=== PATIENT | male | born 1995 | race Caucasian/White ===

== ENCOUNTER 2022-03-18 18:10 | Emergency (ER) | payer SELFPAY ==
--- NOTE | 2022-03-18 20:02 | ER ---
Nurse's Notes [facility] Name: Raji Chiang Age: 26 yrs Sex: Male : 1995 Arrival Date: 03/18/2022 Time: 18:13 Bed 9 Private MD: Diagnosis: Dysuria Presentation: 03/18 18:25 Chief complaint: Patient states: BURNING WITH URINATION X 2 DAYS. Coronavirus screen: [facility] Vaccine status: Patient reports being unvaccinated. Ebola Screen: Patient negative for fever greater than or equal to 101.5 degrees Fahrenheit, and additional compatible Ebola Virus Disease symptoms Patient denies exposure to infectious person. Patient denies travel to an Ebola-affected area in the 21 days before illness onset. Initial Sepsis Screen: Does the patient meet any 2 criteria? No. Patient's initial sepsis screen is negative. Risk Assessment: Do you want to hurt yourself or someone else? Patient reports no desire to harm self or others. Onset of symptoms was March 16, 2022. 18:25 Method Of Arrival: Ambulatory [facility] 18:25 Acuity: ROBINA 4 [facility] 18:25 Acuity: Unassigned [facility] 19:16 Initial Sepsis Screen: Does the patient have a suspected source of infection? No. as6 Patient's initial sepsis screen is negative. 19:17 Acuity: ROBINA 4 as6 Triage Assessment: 18:27 General: Appears in no apparent distress. Behavior is calm, cooperative. Pain: [facility] Complains of pain in groin Pain currently is 6 out of 10 on a pain scale. Quality of pain is described as burning, Pain began 2-3 days ago. Is intermittent, Aggravated by VOIDING. Historical: - PMHx: 18:27 Seizures; Substance Abuse; [facility] - PSHx: 18:27 None; [facility] - Social history:: Smoking status: Patient reports the use of cigarette tobacco products. Screenin:28 Abuse screen: Denies threats or abuse. Denies injuries from another. Nutritional [facility] screening: No deficits noted. Tuberculosis screening: No symptoms or risk factors identified. Fall Risk None identified. Assessment: 19:00 Reassessment: Patient appears in no apparent distress at this time. Patient and/or jb4 family updated on plan of care and expected duration. Pain level reassessed. Patient is alert, oriented x 3, equal unlabored respirations, skin warm/dry/pink. 20:38 Reassessment: Patient appears in no apparent distress at this time. Patient and/or jb4 family updated on plan of care and expected duration. Pain level reassessed. Patient is alert, oriented x 3, equal unlabored respirations, skin warm/dry/pink. Vital Signs: 18:25 BP 131 / 85; Pulse 76; Resp 16; Temp 97.4(O); Pulse Ox 100% ; Weight 69.85 kg; Height 5 6 ft. 7 in. (170.18 cm); Pain 6/10; 18:25 Body Mass Index 24.12 (69.85 kg, 170.18 cm) [facility] ED Course: 18:13 Patient arrived in ED. as 18:14 [facility] 18:14 Alexey Diamond DO is Attending Physician. [facility] 18:27 Triage completed. [facility] 18:28 Arm band placed on right wrist. [facility] 20:22 Adam Avery, RN is Primary Nurse. jb4 20:38 Patient has correct armband on for positive identification. Bed in low position. Call jb4 light in reach. Side rails up X 1. 20:38 No provider procedures requiring assistance completed. Patient did not have IV access jb4 during this emergency room visit. Administered Medications: 20:22 Drug: cefTRIAXone 1 grams Route: IM; Site: right gluteus; jb4 20:37 Follow up: Response: No adverse reaction jb4 20:22 Drug: AZITHromycin 1 grams Route: PO; jb4 20:37 Follow up: Response: No adverse reaction [facility] Medication: 20:38 VIS not applicable for this client. jb4 Outcome: 20:02 Discharge ordered by . [facility] 20:38 Discharged to home ambulatory. jb4 20:38 Condition: stable 20:38 Discharge instructions given to patient, Instructed on discharge instructions, follow up and referral plans. Demonstrated understanding of instructions, follow-up care. 20:39 Patient left the ED. jb4 Signatures: Gurpreet eLe PA PA jmm Martinez, Amelia as Bryson, James, RN OPAL jb4 Ramsey Colon RN RN as6 Alisa Marx RN RN 6
--- NOTE | 2022-03-18 20:02 | EDPHYS ---
Physician Documentation [facility] Name: Raji Chiang Age: 26 yrs Sex: Male : 1995 Arrival Date: 03/18/2022 Time: 18:13 Bed 9 Private MD: ED Physician Alexey Diamond HPI: 03/18 18:44 This 26 yrs old Male presents to ER via Ambulatory with complaints of Pain With jmm Urination. 18:44 Onset: The symptoms/episode began/occurred gradually. Associated signs and symptoms: jmm Pertinent negatives: fever. This is a 26 year old male with a history of epilepsy that presents to the ED with complaints of dysuria. Patient states his partner was recently diagnosed with chlamydia. Denies vomiting or fever. Historical: - PMHx: 18:27 Seizures; Substance Abuse; jh6 - PSHx: 18:27 None; [facility] - Social history:: Smoking status: Patient reports the use of cigarette tobacco products. ROS: 18:44 Constitutional: Negative for fever, chills, and weight loss, Cardiovascular: Negative jmm for chest pain, palpitations, and edema, Respiratory: Negative for shortness of breath, cough, wheezing, and pleuritic chest pain. 18:44 : Positive for urinary symptoms. 18:44 All other systems are negative. Exam: 18:44 Constitutional: This is a well developed, well nourished patient who is awake, alert, jmm and in no acute distress. Head/Face: atraumatic. Eyes: EOMI, no conjunctival erythema appreciated ENT: Moist Mucus Membranes Neck: Trachea midline, Supple Chest/axilla: Normal chest wall appearance and motion. Cardiovascular: Regular rate and rhythm. No edema appreciated Respiratory: Normal respirations, no respiratory distress appreciated Abdomen/GI: Non distended Back: Normal ROM Skin: General appearance color normal MS/ Extremity: Moves all extremities, no obvious deformities appreciated, no edema noted to the lower extremities Neuro: Awake and alert Psych: Behavior is normal, Mood is normal, Patient is cooperative and pleasant Vital Signs: 18:25 BP 131 / 85; Pulse 76; Resp 16; Temp 97.4(O); Pulse Ox 100% ; Weight 69.85 kg; Height 5 jh6 ft. 7 in. (170.18 cm); Pain 6/10; 18:25 Body Mass Index 24.12 (69.85 kg, 170.18 cm) jh6 MDM: 18:44 Patient medically screened. [facility] 20:01 Data reviewed: vital signs, nurses notes. Counseling: I had a detailed discussion with pat the patient and/or guardian regarding: the historical points, exam findings, and any diagnostic results supporting the discharge/admit diagnosis, the need for outpatient follow up, to return to the emergency department if symptoms worsen or persist or if there are any questions or concerns that arise at home. Administered Medications: 20: Drug: cefTRIAXone 1 grams Route: IM; Site: right gluteus; jb4 20:37 Follow up: Response: No adverse reaction jb4 20:22 Drug: AZITHromycin 1 grams Route: PO; jb4 20:37 Follow up: Response: No adverse reaction jb4 Disposition: 03/19 09:45 Co-signature as Attending Physician, Alexey Diamond DO I was immediately available on-site ms3 in the Emergency Department for consultation in the care of the patient.. Disposition Summary: 03/18/22 20:02 Discharge Ordered Location: Home [facility] Condition: Stable [facility] Diagnosis - Dysuria [facility] Followup: [facility] - With: Private Physician - When: As needed - Reason: Recheck today's complaints, Continuance of care, Re-evaluation by your physician Discharge Instructions: - Discharge Summary Sheet [facility] - Dysuria [facility] - Preventing Sexually Transmitted Infections, Adult [facility] Forms: - Medication Reconciliation Form [facility] - Thank You Letter jm - Antibiotic Education jmm - Prescription Opioid Use [facility] Signatures: Gurpreet Lee PA PA jmm Bryson, James, RN RN jb4 Alexey Diamond DO DO ms3 Alisa Marx RN RN jh6
[2022-03-18] MEDS ORDERED: WATER FOR INJ,STERILE 10 ML ONE (20:18)
[2022-03-18] MEDS ORDERED: CEFTRIAXONE 1000 MG/VIAL ONE (20:18)
[2022-03-18] MEDS ORDERED: AZITHROMYCIN 250 MG TAB ONE (20:18)
[2022-03-18 21:18] VITALS: BP 131/85; TEMP 97.4; O2SAT 100
[2022-03-18] MEDS ORDERED: NITROFURAN MACRO 100 MG CAP PO ONE (21:53)
--- OUTSIDE RECORDS SUMMARY | 2022-03-19 15:46 | XMS REPORT | Continuity of Care Document ---
:1995 Author Organization [facility] t Address [address] [place] [address] Dr. Jewell [address] [place] [id number] Care Team Providers Name Role Phone PAULETTE NOLASCO Attending Clinician Unavailable Payers Payer Name Policy Type Policy Number Effective Date Expiration Date [place] [id number] 2018 00:00:00 Problems This patient has no known problems. Allergies, Adverse Reactions, Alerts Allergy Allergy Status Severity Reaction(s) Onset Inactive Treating Comm ents Source Name Type Date Date Clinician NO KNOWN Drug Active [facility] ALLERGIE Class [facility] Medications This patient has no known medications. Procedures This patient has no known procedures. Encounters Start End Encounter Admission Attending Care Care Encounter Source Date/Time Date/Time Type Type Clinicians Facility Department ID 2019-07-31 2019-07-31 Emergency X Roderick NOLASCO [facility] ERT [id number] 13:29:03 17:20:00 [facility] Results This patient has no known results.
== END 2022-03-18 20:39 | disposition home or self-care (01) ==
LOC: ER 18:10
DX: R30.0 Dysuria (principal); Z72.0 Tobacco use

== ENCOUNTER 2023-07-23 17:06 | Emergency (ER) | payer SELFPAY ==
[2023-07-23 18:15] LABS: SARS-CoV-2 Antigen Rapid Res Negative (Negative)
--- NOTE | 2023-07-23 18:48 | ER ---
Nurse's Notes [facility] Name: Raji Chiang Age: 27 yrs Sex: Male : 1995 Arrival Date: 07/23/2023 Time: 17:06 Bed 10 Private MD: Diagnosis: Influenza due to identified novel influenza A virus Presentation: 07/23 17:25 Chief complaint: Patient states: flu like symptoms onset this morning. pt states that cm10 he was around someone that has the flu. Coronavirus screen: Vaccine status: Patient reports being unvaccinated. Client denies travel out of the [place] in the last 14 days. Ebola Screen: Patient denies travel to an Ebola-affected area in the 21 days before illness onset. No symptoms or risks identified at this time. Initial Sepsis Screen: Does the patient meet any 2 criteria? No. Patient's initial sepsis screen is negative. Does the patient have a suspected source of infection? No. Patient's initial sepsis screen is negative. Risk Assessment: Do you want to hurt yourself or someone else? Patient reports no desire to harm self or others. Onset of symptoms was July 23, 2023. 17:25 Method Of Arrival: Ambulatory cm10 17:25 Acuity: ROBINA 4 cm10 Historical: - Allergies: 17:32 No Known Allergies; cm10 - PMHx: 17:32 Seizures; Substance Abuse; cm10 - Immunization history:: Adult Immunizations unknown. - Social history:: Smoking status: Patient reports the use of cigarette tobacco products, smokes one pack cigarettes per day. Reported history of juuling and/or vaping. Screenin:00 [facility] ED Fall Risk Assessment (Adult) History of falling in the last 3 months, kb3 including since admission No falls in past 3 months (0 pts) Confusion or Disorientation No (0 pts) Intoxicated or Sedated No (0 pts) Impaired Gait No (0 pts) Mobility Assist Device Used No (0 pt) Altered Elimination No (0 pt) Score/Fall Risk Level 0 - 2 = Low Risk Oriented to surroundings. Abuse screen: Denies threats or abuse. Denies injuries from another. Nutritional screening: No deficits noted. Tuberculosis screening: No symptoms or risk factors identified. Assessment: 18:00 General: Appears in no apparent distress. Behavior is calm, cooperative. kb3 18:00 Pain: Complains of pain in head, chest, right arm, left arm, right leg and left leg kb3 Pain does not radiate. Pain currently is 8 out of 10 on a pain scale. Quality of pain is described as aching, Pain began 1 day ago. Vital Signs: 17:25 BP 141 / 90; Pulse 99; Resp 18; Temp 98.2; Pulse Ox 97% ; Weight 72.57 kg; Height 5 ft. cm10 7 in. ; 17:25 Body Mass Index 25.06 (72.57 kg, 170.18 cm) cm10 ED Course: 17:14 Patient arrived in ED. as 17:17 Alexey Diamond DO is Attending Physician. ms3 17:18 Alina Tyler FNP-C [facility] kb 17:32 Triage completed. cm10 17:32 Arm band placed on Patient placed in waiting room. cm10 18:00 Patient has correct armband on for positive identification. Call light in reach. kb3 Provided Education on: plan of care. 18:00 No provider procedures requiring assistance completed. Patient did not have IV access kb3 during this emergency room visit. Administered Medications: No medications were administered Medication: 18:00 VIS not applicable for this client. kb3 Outcome: 18:47 Discharge ordered by MD. kb 19:00 Discharged to home ambulatory, kb3 19:00 Condition: good kb3 19:00 Discharge instructions given to patient, Instructed on discharge instructions, follow up and referral plans. medication usage, Demonstrated understanding of instructions, follow-up care, medications, 19:19 Patient left the ED. kb3 Signatures: Alina Tyler FNP-C FNP-Lauren Mills as Alexey Diamond DO DO ms3 Angelita Martinez, RN RN kb3 Nita Chicas, RN RN cm10
--- NOTE | 2023-07-23 18:48 | EDPHYS ---
Physician Documentation [facility] Name: Raji Chiang Age: 27 yrs Sex: Male : 1995 Arrival Date: 07/23/2023 Time: 17:06 Bed 10 Private MD: ED Physician Alexey Diamond HPI: 07/23 19:08 This 27 yrs old Male presents to ER via Ambulatory with complaints of Flu Symptoms. kb 19:08 Patient is a 27-year-old male who presents for fever, malaise, cough and congestion kb that started today. Reports has been exposed to the flu. Historical: - Allergies: 17:32 No Known Allergies; cm10 - PMHx: 17:32 Seizures; Substance Abuse; cm10 - Immunization history:: Adult Immunizations unknown. - Social history:: Smoking status: Patient reports the use of cigarette tobacco products, smokes one pack cigarettes per day. Reported history of juuling and/or vaping. ROS: 19:08 Abdomen/GI: Negative for abdominal pain, nausea, vomiting, diarrhea, and constipation, kb 19:08 Constitutional: Positive for fever, malaise, 19:08 ENT: Positive for rhinorrhea, sinus congestion, 19:08 Respiratory: Positive for cough, 19:08 All other systems are negative, Exam: 19:08 Constitutional: This is a well developed, well nourished patient who is awake, alert, kb and in no acute distress. Head/Face: Normocephalic, atraumatic. ENT: Moist Mucous membranes Cardiovascular: Regular rate Respiratory: Respirations even and unlabored. No increased work of breathing. Talking in full sentences Skin: Warm, dry with normal turgor. Normal color. MS/ Extremity: Pulses equal, no cyanosis. Neurovascular intact. Full, normal range of motion. Neuro: Awake and alert, GCS 15, oriented to person, place, time, and situation. Moves all extremities. Normal gait. Vital Signs: 17:25 BP 141 / 90; Pulse 99; Resp 18; Temp 98.2; Pulse Ox 97% ; Weight 72.57 kg; Height 5 ft. cm10 7 in. ; 17:25 Body Mass Index 25.06 (72.57 kg, 170.18 cm) cm10 MDM: 17:18 Patient medically screened. kb 19:09 Differential diagnosis: Flu, COVID, URI. Data reviewed: vital signs, nurses notes. kb Counseling: I had a detailed discussion with the patient and/or guardian regarding the historical points, exam findings, and any diagnostic results supporting the discharge/admit diagnosis, lab results, the need for outpatient follow up, a family practitioner, to return to the emergency department if symptoms worsen or persist or if there are any questions or concerns that arise at home. 19:09 ED course: Son is here for similar symptoms and tested positive for flu B. kb 07/23 17:24 Order name: Flu; Complete Time: 18:25 cm10 07/23 18:01 Order name: SARS-COV-2 Antigen Rapid; Complete Time: 18:25 EDMS Administered Medications: No medications were administered Disposition: 20:52 I was immediately available on-site in the Emergency Department for consultation in the ms3 care of the patient. Disposition Summary: 07/23/23 18:47 Discharge Ordered Notes: Location: Home kb Condition: Stable kb Diagnosis - Influenza due to identified novel influenza A virus kb Followup: kb - With: Emergency Department - When: As needed - Reason: Worsening of condition Followup: kb - With: Private Physician - When: 2 - 3 days - Reason: Recheck today's complaints, Continuance of care, Re-evaluation by your physician Discharge Instructions: - Discharge Summary Sheet kb - Influenza, Adult, [id number] kb Forms: - Medication Reconciliation Form kb - Thank You Letter kb - Antibiotic Education kb - Prescription Opioid Use kb - Patient Portal Instructions kb - Leadership Thank You Letter kb - Work release form kb3 Signatures: Dispatcher [employer] EDAlina Ya, ORAL AND MAXILLOFACIAL PATHOLOGIST-C GUIDO-Alexey Baca DO DO ms3 Nita Chicas, RN RN cm10 Corrections: (The following items were deleted from the chart) 18: 17:25 SARS-COV-2 RT PCR+[id number] ordered. EDMO EDMS
[2023-07-23 21:04] VITALS: BP 141/90; TEMP 98.2; O2SAT 97
== END 2023-07-23 19:19 | disposition home or self-care (01) ==
LOC: ER 17:06
DX: J10.1 Influenza due to other identified influenza virus with other respiratory manifestations (principal); Z11.52 Encounter for screening for COVID-19
CPT/HCPCS: 36415; 87804; 87811; 99282

== ENCOUNTER 2024-02-24 09:45 | Emergency (ER) | payer SELFPAY ==
[2024-02-24] MEDS ORDERED: KETOROLAC 30 MG/ML INJ ONE (13:34)
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
--- NOTE | 2024-02-24 14:05 | EDPHYS ---
Physician Documentation [facility] Name: Raji Chiang Age: 28 yrs Sex: Male : 1995 Arrival Date: 02/24/2024 Time: 09:45 Bed 12 Private MD: ED Physician Kailey Wilkinson HPI: 02/23 14:23 This 28 yrs old Male presents to ER via Ambulatory with complaints of Back gb1 Pain, Facial Injury. Historical: - Allergies: 10:04 No Known Allergies; aa5 - PMHx: 10:04 Seizures; Substance Abuse; aa5 - PSHx: 10:04 None; aa5 - Immunization history:: Adult Immunizations unknown. - Infectious Disease History:: Denies. - Social history:: Smoking status: Patient reports the use of cigarette tobacco products. Exam: 14:23 Constitutional: This is a well developed, well nourished patient who is awake, alert, gb1 and in no acute distress. Head/Face: Normocephalic, atraumatic. Eyes: Pupils equal round and reactive to light, extra-ocular motions intact. Lids and lashes normal. Conjunctiva and sclera are non-icteric and not injected. Cornea within normal limits. Periorbital areas with no swelling, redness, or edema. ENT: Nares patent. No nasal discharge, no septal abnormalities noted. Tympanic membranes are normal and external auditory canals are clear. Oropharynx with no redness, swelling, or masses, exudates, or evidence of obstruction, uvula midline. Mucous membranes moist. Neck: Trachea midline, no thyromegaly or masses palpated, and no cervical lymphadenopathy. Supple, full range of motion without nuchal rigidity, or vertebral point tenderness. No Meningismus. Chest/axilla: Normal chest wall appearance and motion. Nontender with no deformity. No lesions are appreciated. Cardiovascular: Regular rate and rhythm with a normal S1 and S2. No gallops, murmurs, or rubs. Normal PMI, no JVD. No pulse deficits. Respiratory: Lungs have equal breath sounds bilaterally, clear to auscultation and percussion. No rales, rhonchi or wheezes noted. No increased work of breathing, no retractions or nasal flaring. Abdomen/GI: Soft, non-tender, with normal bowel sounds. No distension or tympany. No guarding or rebound. No evidence of tenderness throughout. Back: Patient has lateral right lower lumbar spinal tenderness that is just paraspinal. No costovertebral tenderness. Patient is unable to flex at the hips and touch his toes without pain. He denies any radiculopathy. Skin: Warm, dry with normal turgor. Normal color with no rashes, no lesions, and no evidence of cellulitis. MS/ Extremity: Pulses equal, no cyanosis. Neurovascular intact. Full, normal range of motion. Vital Signs: 10:05 BP 145 / 74; Pulse 90; Resp 16 S; Temp 98.9(O); Pulse Ox 98% on R/A; Weight 72.57 kg aa5 (R); Height 5 ft. 7 in. (R); 12:30 BP 141 / 85; Pulse 86; Resp 18; Pulse Ox 99% on R/A; Pain 8/10; tl4 14:34 BP 132 / 86; Pulse 80; Resp 16; Temp 98.3(O); Pulse Ox 99% on R/A; Pain 5/10; tl4 10:05 Body Mass Index 25.06 (72.57 kg, 170.18 cm) aa5 12:30 Pain Scale: Adult tl4 14:34 Pain Scale: Adult tl4 MDM: 10:03 Patient medically screened. gb1 14:23 Data reviewed: nurses notes, lab test result(s), radiologic studies, CT scan. gb1 02/23 13:16 Order name: CT Lumbar Spine Wo Con; Complete Time: 13:54 gb1 Administered Medications: 13:43 Drug: Ketorolac IM 60 mg IM once Route: IM; Site: right ventrogluteal; tl4 14:35 Follow up: Response: No adverse reaction; Pain is decreased tl4 Disposition Summary: 02/24/24 14:04 Discharge Ordered Notes: Location: Home gb1 Problem: new gb1 Symptoms: are unchanged gb1 Condition: Fair gb1 Diagnosis - Fracture of fourth lumbar vertebra gb1 - Contusion of eyeball and orbital tissues, left eye gb1 Followup: gb1 - With: Private Physician - When: - Reason: Re-evaluation by your physician Discharge Instructions: - Discharge Summary Sheet gb1 - Transverse Process Fracture gb1 Forms: - Work release form gb1 - Medication Reconciliation Form gb1 - Antibiotic Education gb1 - Prescription Opioid Use gb1 - Patient Portal Instructions gb1 - Leadership Thank You Letter gb1 Prescriptions: - Ibuprofen 800 mg Oral Tablet - take 1 tablet ORAL route every 12 hours As needed take with food; 20 tablet; gb1 Refills: 0, Product Selection Permitted Signatures: Dispatcher [employer] Pauline Schroeder RN RN aa5 Kailey Wilkinson MD MD gb1 Edu Dickerson RN RN tl4
[2024-02-24 14:33] VITALS: TEMP 98.9
[2024-02-24 14:54] VITALS: BP 145/74; O2SAT 98
== END 2024-02-24 14:33 | disposition home or self-care (01) ==
LOC: ER 09:45
DX: S32.049A Unspecified fracture of fourth lumbar vertebra, initial encounter for closed fracture (principal); S05.12XA Contusion of eyeball and orbital tissues, left eye, initial encounter; Y04.0XXA Assault by unarmed brawl or fight, initial encounter; F17.210 Nicotine dependence, cigarettes, uncomplicated
CPT/HCPCS: 72131; 96372; 99284

== ENCOUNTER 2024-07-12 19:05 | Emergency (ER) | payer SELFPAY ==
--- NOTE | 2024-07-12 20:13 | EDPHYS ---
Physician Documentation [facility] Name: Raji Chiang Age: 28 yrs Sex: Male : 1995 Arrival Date: 07/12/2024 Time: 19:05 Bed [id number] Private MD: ED Physician Reuben Collins HPI: 07/12 19:58 This 28 yrs old Male presents to ER via Ambulatory with complaints of Bump on sp4 face. 07/13 20:04 This is a 28-year-old male who complains of left cheek nodule that has been present for sp4 a year. Historical: - Allergies: 07/12 19:53 No Known Allergies; ko1 - PMHx: 19:53 Seizures; Substance Abuse; ko1 - PSHx: 19:53 None; ko1 - Immunization history:: Client reports having NOT received the Covid vaccine. - Infectious Disease History:: Denies. - Social history:: Smoking status: Patient reports the use of cigarette tobacco products, smokes one-half pack cigarettes per day, Patient uses alcohol, on a daily basis. - Family history:: not pertinent. ROS: 07/13 20:09 Constitutional: Negative for fever, chills, and weight loss, positive for left cheek sp4 left facial lesion All other systems are negative, Exam: 20:09 Constitutional: This is a well developed, well nourished patient who is awake, alert, sp4 and in no acute distress. Head/Face: Normocephalic, atraumatic. There is soft freely movable left upper cheek lesion consistent with moderate size lipoma . No sign of sebaceous cyst no sign of infected sebaceous cyst , no sign of abscess and no sign of mass suspicious for cancer. Eyes: Pupils equal round and reactive to light, extra-ocular motions intact. Lids and lashes normal. Conjunctiva and sclera are not injected. Cornea within normal limits. Periorbital areas with no swelling, redness, or edema. ENT: Nares patent. No nasal discharge, no septal abnormalities noted. Tympanic membranes are normal and external auditory canals are clear. Oropharynx with no redness, swelling, or masses, exudates, or evidence of obstruction, uvula midline. Mucous membranes moist. Neck: Trachea midline, no thyromegaly or masses palpated, and no cervical lymphadenopathy. Supple, full range of motion without nuchal rigidity, or vertebral point tenderness. Chest/axilla: Normal chest wall appearance and motion. Nontender with no deformity. No lesions are appreciated. Cardiovascular: Regular rate and rhythm with a normal S1 and S2. No gallops, murmurs, or rubs. Normal PMI, no JVD. No pulse deficits. Respiratory: Lungs have equal breath sounds bilaterally, clear to auscultation and percussion. No rales, rhonchi or wheezes noted. No increased work of breathing, no retractions or nasal flaring. Abdomen/GI: Soft, with normal bowel sounds. No distension or tympany. No guarding or rebound. No evidence of tenderness throughout. Back: No spinal tenderness. No costovertebral tenderness. Skin: Warm, dry with normal turgor. Normal color with no rashes, no lesions, and no evidence of cellulitis. MS/ Extremity: Pulses equal, no cyanosis. Neurovascular intact. Full, normal range of motion. Neuro: Awake and alert, GCS 15, oriented to person, place, time, and situation. Cranial nerves II-XII grossly intact. Motor strength 5/5 in all extremities. Sensory grossly intact. Psych: Awake, alert, with orientation to person, place and time. Behavior, mood, and affect are within normal limits Vital Signs: 07/12 19:52 BP 115 / 84; Pulse 71; Resp 16; Temp 98.4(O); Pulse Ox 100% on R/A; MAP 90 mmHg; Weight ko1 70.31 kg; Height 5 ft. 7 in. ; Pain 4/10; 19:52 Body Mass Index 24.28 (70.31 kg, 170.18 cm) ko1 19:52 Pain Scale: Adult ko1 Jose Coma Score: 07/13 20:09 Eye Response: spontaneous(4). Motor Response: obeys commands(6). Verbal Response: sp4 oriented(5). Total: 15. 20:09 Eye Response: spontaneous(4). Motor Response: obeys commands(6). Verbal Response: sp4 oriented(5). Total: 15. MDM: 07/12 20:13 Medical Screening Exam initiated sp4 07/13 20:09 Differential diagnosis: Contusion of Hematoma on Laceration of. Data reviewed: vital sp4 signs, nurses notes, old medical records. ED course: Positive for lipoma of the left upper cheek. Patient was advised that we cannot resected his lipoma here in the emergency room but we can refer patient to Dr. Alfaro with ENT or local plastic surgeon for resection of lipoma in the office.. Administered Medications: No medications were administered Disposition Summary: 07/12/24 20:13 Discharge Ordered Problem: new sp4 Symptoms: have improved sp4 Condition: Stable sp4 Diagnosis - Left Facial lipoma sp4 Followup: sp4 - With: Urvashi Ponce MD - When: 7 - 10 days - Reason: Recheck today's complaints Followup: sp4 - With: Sandor De La Cruz MD - When: 7 - 10 days - Reason: Recheck today's complaints Followup: sp4 - With: Shelli Alfaro MD - When: 7 - 10 days - Reason: Recheck today's complaints Discharge Instructions: - Discharge Summary Sheet sp4 - Lipoma sp4 Forms: - Work release form sp4 - Patient Portal Instructions sp4 Signatures: Radha Romero RN RN ko1 Reuben Collins MD MD sp4
--- NOTE | 2024-07-12 20:13 | ER ---
Nurse's Notes [facility] Name: Raji Chiang Age: 28 yrs Sex: Male : 1995 Arrival Date: 07/12/2024 Time: 19:05 Bed IW10 Private MD: Diagnosis: Left Facial lipoma Presentation: 07/12 19:52 Chief complaint: Patient states: bump on left side of face, on cheek, been there for ko1 about a year, but has gotten bigger and bigger over the last few months. It irritates my left eye and gives me a headache. Coronavirus screen: Client denies travel out of the [place] in the last 14 days. Ebola Screen: Patient negative for fever greater than or equal to 101.5 degrees Fahrenheit, and additional compatible Ebola Virus Disease symptoms Patient denies exposure to infectious person. Patient denies travel to an Ebola-affected area in the 21 days before illness onset. No symptoms or risks identified at this time. Initial Sepsis Screen: Does the patient meet any 2 criteria? No. Patient's initial sepsis screen is negative. Does the patient have a suspected source of infection? No. Patient's initial sepsis screen is negative. Risk Assessment: Do you want to hurt yourself or someone else? Patient reports no desire to harm self or others. Onset of symptoms is unknown. 19:52 Method Of Arrival: Ambulatory ko1 19:52 Acuity: ROBINA 4 ko1 Triage Assessment: 19:53 General: Appears in no apparent distress. Behavior is calm, cooperative. Pain: ko1 Complains of pain in left cheek Pain currently is 3 out of 10 on a pain scale. Pain began about a year. EENT: No signs and/or symptoms were reported regarding the EENT system. Neuro: Level of Consciousness is awake, alert, obeys commands, Oriented to person, place, time, situation. Cardiovascular: Patient's skin is warm and dry. Respiratory: Airway is patent Respiratory effort is even, unlabored, Respiratory pattern is regular, symmetrical. GI: No signs and/or symptoms were reported involving the gastrointestinal system. Abdomen is flat, non-distended. : No signs and/or symptoms were reported regarding the genitourinary system. Derm: bump on left cheek. Musculoskeletal: No signs and/or symptoms reported regarding the musculoskeletal system. Historical: - Allergies: 19:53 No Known Allergies; ko1 - PMHx: 19:53 Seizures; Substance Abuse; ko1 - PSHx: 19:53 None; ko1 - Immunization history:: Client reports having NOT received the Covid vaccine. - Infectious Disease History:: Denies. - Social history:: Smoking status: Patient reports the use of cigarette tobacco products, smokes one-half pack cigarettes per day, Patient uses alcohol, on a daily basis. - Family history:: not pertinent. Screenin:30 [facility] ED Fall Risk Assessment (Adult) History of falling in the last 3 months, tm6 including since admission No falls in past 3 months (0 pts) Confusion or Disorientation No (0 pts) Intoxicated or Sedated No (0 pts) Impaired Gait No (0 pts) Mobility Assist Device Used No (0 pt) Altered Elimination No (0 pt) Score/Fall Risk Level 0 - 2 = Low Risk Oriented to surroundings, Maintained a safe environment, Educated pt \T\ family on fall prevention, incl call for assistance when getting out of bed. Abuse screen: Denies threats or abuse. Denies injuries from another. Nutritional screening: No deficits noted. Tuberculosis screening: No symptoms or risk factors identified. Assessment: 20:30 Reassessment: see triage assessment. tm6 Vital Signs: 19:52 BP 115 / 84; Pulse 71; Resp 16; Temp 98.4(O); Pulse Ox 100% on R/A; MAP 90 mmHg; Weight ko1 70.31 kg; Height 5 ft. 7 in. ; Pain 4/10; 19:52 Body Mass Index 24.28 (70.31 kg, 170.18 cm) ko1 19:52 Pain Scale: Adult ko1 Jose Coma Score: 07/13 20:09 Eye Response: spontaneous(4). Motor Response: obeys commands(6). Verbal Response: sp4 oriented(5). Total: 15. 20:09 Eye Response: spontaneous(4). Motor Response: obeys commands(6). Verbal Response: sp4 oriented(5). Total: 15. ED Course: 07/12 19:09 Patient arrived in ED. mr 19:53 Triage completed. ko1 19:53 Arm band placed on left wrist. ko1 19:57 Reuben Collins MD is Attending Physician. sp4 20:10 Urvashi Ponce MD is Referral Physician. sp4 20:11 Sandor De La Cruz MD is Referral Physician. sp4 20:12 Shelli Alfaro MD is Referral Physician. sp4 20:30 Allergy band placed. Provided Education on: follow up with MDs listed on discharge tm6 paperwork. 20:30 No provider procedures requiring assistance completed. Patient did not have IV access tm6 during this emergency room visit. Administered Medications: No medications were administered Medication: 20:30 VIS not applicable for this client. tm6 Outcome: 20:13 Discharge ordered by MD. sp4 20:30 Discharged to home ambulatory, tm6 20:30 Condition: stable 20:30 Discharge instructions given to patient, Instructed on discharge instructions, follow up and referral plans. Demonstrated understanding of instructions, follow-up care, 20:31 Patient left the ED. tm6 Signatures: Juana Almanzar, Reg Reg mr Radha Romero, RN RN ko1 Reuben Collins MD MD sp4 Bo Reed RN RN tm6
[2024-07-12 20:36] VITALS: BP 115/84; TEMP 98.4; O2SAT 100
== END 2024-07-12 20:31 | disposition home or self-care (01) ==
LOC: ER 19:05
DX: D17.0 Benign lipomatous neoplasm of skin and subcutaneous tissue of head, face and neck (principal); F17.210 Nicotine dependence, cigarettes, uncomplicated

== ENCOUNTER 2025-04-07 09:44 | Emergency (ER) | payer SELFPAY ==
[2025-04-07] MEDS ORDERED: LIDOCAINE 2% W/EPI 1:200,000 MPF 20 ML VIAL IM ONE (10:11)
[2025-04-07] MEDS ORDERED: TDAP (DIPHTH,PERTUSS(ACELL),TET VAC) 0.5 ML VIAL IMVAC ONE (10:11)
[2025-04-07] MEDS ORDERED: NA CHLORIDE 0.9% 2,000 ML ONE (10:11)
[2025-04-07] MEDS ORDERED: ONDANSETRON 4 MG/2 ML VIAL ONE (10:32)
[2025-04-07] MEDS ORDERED: MORPHINE 4 MG/ML SYR ONE (10:33)
--- NOTE | 2025-04-07 10:46 | RAD REPORT ---
EXAM: CT Head Brain Wo Cont HISTORY: TRAUMA COMPARISON: 01/05/[address] TECHNIQUE: Multiple contiguous axial images were obtained for a CT of the brain without contrast. Sag ittal and coronal reformats were performed. One or more of the following dose reduction techniques were used: Automated exposure control, adjus tment of the mA and kV according to patient size, and iterative reconstruction. Unless otherwise specified, incidental findings do not require dedicated imaging follow-up. FINDINGS: No evidence of hydrocephalus, intracranial hemorrhage, or extra-axial fluid collection. The brain is normal in morphology. The calvarium is intact. Facial bony structures are evaluated separately The visualized paranasal sin uses and mastoid air cells are essentially clear. IMPRESSION: No evidence of acute intracranial abnormality. Facial bony structures are evaluated separately.
--- NOTE | 2025-04-07 10:52 | RAD REPORT ---
EXAMINATION: CT MAXILLOFACIAL WITHOUT CONTRAST CLINICAL INDICATION: [facility] MAIN TRAUMA Bed Name: 16 TECHNIQUE: Axial images were obtained through the facial bones and orbits without intravenous contras t. Sagittal and coronal reconstructions were created from the data. One or more of the following dose reduction techniques were used: Automated exposure control, adjustment of the mA and/or kV accor ding to patient size, and/or iterative reconstruction. Unless otherwise specified, incidental findings do not require dedicated imaging follow-up. COMPARISON: No prior exam. FINDINGS: SOFT TISSUE: Right premalar soft tissue swelling and laceration with small locules of gas extending i nto the temporalis fossa. BONES: Comminuted fracture of the zygoma, at the junction with the right lateral orbital margin, inta ct most inferior aspect of the zygoma at the junction with the lateral maxillary sinus wall. Surrounding soft tissue swelling and locules of gas within the temporalis fossa. Nasal bones, orbital and paranasal sinus margins, pterygoid plates, and mandible appear intact. No aggressive osseous lesions. No lesion of the visualized skull base or calvarium. ORBITS: The globes are intact. No intraorbital hemorrhage or mass. SINUSES: The paranasal sinuses and tympanomastoid cavities are predominantly clear. IMPRESSION: Comminuted but incomplete right zygomatic arch fracture, with comminuted components along the junctio n with the right orbital margin. Overlying laceration with locules of gas extending into the temporalis fossa. THIS REPORT CONTAINS FINDINGS THAT MAY BE CRITICAL TO PATIENT CARE. The findings were verbally commun icated via telephone to Doug Johnston NP on 04/07/2025 10:49 AM.
[2025-04-07 11:05] LABS: ALT/SGPT 32 U/L (16-61); AST/SGOT 19 U/L (15-37); Albumin 4.3 g/dL (3.4-5.0); Albumin/Globulin Ratio 1.4 (1.1-1.8); Alkaline Phosphatase 61 U/L (45-117); Anion Gap 10.2 mEq/L (5.0-15.0); BUN Blood Urea Nitrogen 15 mg/dL (7-18); Globulin 3.1 g/dL (2.3-3.5); Glucose Level 113 mg/dL (74-106); Potassium 4.2 mEq/L (3.5-5.1)
[2025-04-07 11:07] LABS: Troponin High Sensitivity < 3.0 pg/mL (<58.9)
[2025-04-07 11:15] LABS: Absolute Lymphocytes (CBC) 1.1 K/uL (0.7-4.9); Hematocrit 44.0 % (39.6-49.0); Hemoglobin 15.1 g/dL (13.6-17.9); MCH 33.1 pg (27.0-35.0); MCHC 34.3 g/dL (32.0-36.0); MCV 96.5 fL (80-100); MPV 9.0 fL (7.6-11.3); Nucleated RBC Absolute Count 0.0 (0-0); Nucleated Red Blood Cells % 0.1 % (0-0); RBC Red Blood Cell Count 4.56 M/uL (4.33-5.43); White Blood Count 8.40 thou/uL (4.3-10.9)
--- NOTE | 2025-04-07 11:55 | EDPHYS ---
Physician Documentation [facility] Name: Raji Chiang Age: 29 yrs Sex: Male : 1995 Arrival Date: 04/07/2025 Time: 09:44 Bed 16 Private MD: ED Physician Monet Vázquez HPI: 04/07 10:07 This 29 yrs old Male presents to ER via Ambulatory with complaints of Passed dr5 Out Prior To Arrival, Dizziness, Weakness, Laceration To Scalp/Face - CHEEK. 10:07 The patient has experienced syncope. Onset: The symptoms/episode began/occurred dr5 acutely. Patient is a 29-year-old male with history of seizure and substance abuse coming in with syncope that occurred last night. Patient reports he had alcohol and fell. Patient does not remember what time he fell. Patient states that he woke up this morning at a pool of blood. Patient has laceration to right baptist. Patient does not know last tetanus immunization. Patient reports mild headache. Patient is grossly neurologically intact.. Historical: - Allergies: 09:58 No Known Drug Allergies; ll1 - PMHx: 09:58 Seizures; Substance Abuse; ll1 - PSHx: 09:58 None; ll1 - Immunization history:: Adult Immunizations up to date, Last tetanus immunization: up to date. - Infectious Disease History:: Denies. - Social history:: Smoking status: Patient reports the use of cigarette tobacco products, smokes one-half pack cigarettes per day, Reported history of juuling and/or vaping. ROS: 10:07 Constitutional: as per hpi dr5 Exam: 10:07 Abdomen/GI: Inspection: abdomen appears normal, dr5 10:07 Constitutional: This is a well developed, well nourished patient who is awake, alert, and in no acute distress. Head/Face: Normocephalic, traumatic laceration noted to right baptist Eyes: Pupils equal round and reactive to light, extra-ocular motions intact. Lids and lashes normal. Conjunctiva and sclera are non-icteric and not injected. Cornea within normal limits. Periorbital areas with no swelling, redness, or edema. Neck: Trachea midline, no thyromegaly or masses palpated, and no cervical lymphadenopathy. Supple, full range of motion without nuchal rigidity, or vertebral point tenderness. No Meningismus. Chest/axilla: Normal chest wall appearance and motion. Nontender with no deformity. No lesions are appreciated. Cardiovascular: Regular rate and rhythm with a normal S1 and S2. Normal PMI, no JVD. No pulse deficits. Respiratory: Lungs have equal breath sounds bilaterally, clear to auscultation. No rales, rhonchi or wheezes noted. No increased work of breathing, no retractions or nasal flaring. Back: No spinal tenderness. No costovertebral tenderness. Full range of motion. Skin: Warm, dry with normal turgor. Normal color with no rashes, no lesions, and no evidence of cellulitis. Laceration noted lateral to right eye. MS/ Extremity: Pulses equal, no cyanosis. Neurovascular intact. Full, normal range of motion. Neuro: Awake and alert, GCS 15, oriented to person, place, time, and situation. Cranial nerves II-XII grossly intact. Motor strength 5/5 in all extremities. Sensory grossly intact. Cerebellar exam normal. Normal gait. Vital Signs: 09:58 BP 109 / 74; Pulse 81; Resp 16; Temp 98; Pulse Ox 100% on R/A; Weight 70.31 kg; Height ll1 5 ft. 7 in. ; Pain 7/10; 13:05 BP 116 / 75; Pulse 78; Resp 18; Pulse Ox 100% on R/A; kj2 14:05 BP 115 / 72; Pulse 80; Resp 18; Pulse Ox 100% on R/A; kj2 09:58 Body Mass Index 24.28 (70.31 kg, 170.18 cm) ll1 09:58 Pain Scale: Adult ll1 NIH Stroke Scale Scores: 11:38 NIHSS Score: 0 ll1 Laceration: 12:11 Wound Repair of 3cm ( 1.2in ) subcutaneous laceration to lateral to right eye. dr5 Irregularly shaped.. "T" shaped laceration. Distal neuro/vascular/tendon intact. Anesthesia: Local anesthetic administered with 2 mls of 1% lidocaine w/ Epi. Wound prep: Moderate cleansing by me. Skin closed with 4 5-0 Chromic Gut using simple sutures and sterile technique. Dressed with non-adherent dressing. Patient tolerated well. MDM: 09:48 Medical Screening Exam initiated dr5 10:10 ED course: Concerns for syncope and possible intracranial hemorrhage. Will obtain CT dr5 scan to rule out ICH. Tetanus will be updated. Will repair laceration. Will obtain lab work to rule out syncope from electrolyte abnormality or troponin.. 12:12 Differential Diagnosis: Facial fracture, intracranial hemorrhage, elevated troponin, dr5 electrolyte abnormality. Data reviewed: vital signs, nurses notes, lab test result(s), CBC, white blood cell count, hemoglobin, hematocrit, platelets, electrolytes, sodium, potassium, chloride, serum bicarbonate, BUN, creatinine, serum glucose, radiologic studies, CT scan. Consideration of Admission/Observation Patient was admitted/placed on observation. Management of patient was discussed with the following:. I considered the following discharge prescriptions or medication management in the emergency department I discussed and recommended Over The Counter medications, Medications were administered in the Emergency Department. See MAR. Discussion of test interpretation with radiology: I had a discussion with radiology regarding a test interpretation. Discussed case with Dr. Healy.. 13:52 Care significantly affected by the following chronic conditions: Seizures, substance dr5 abuse. Care significantly affected by the following Social Determinants of Health: Poor access to healthcare and/or lack of insurance, Poor access to transportation, Problems related to employment. Counseling: I had a detailed discussion with the patient and/or guardian regarding the historical points, exam findings, and any diagnostic results supporting the discharge/admit diagnosis, the presence of at least one elevated blood pressure reading (>120/80) during this emergency department visit, lab results, radiology results, the need to transfer to another facility, for higher level of care, [facility] does not immediately have the required specialist, Patient needs maxillofacial service. Medication response: Response to treatment: the patient's symptoms have markedly improved after treatment. Special discussion: I have referred the patient to see his PCP for further evaluation of high blood pressure. ED course: Will transfer downtown for comminuted right zygomatic arch fracture. Laceration repaired completed in the ER. 2 g of Ancef given IV. Patient is feeling better after laceration repair.. 13:53 ED course: Patient had auto-accepted to [facility] by Dr. Austen Bal. 04/07 10:03 Order name: CBC with Diff; Complete Time: 11:40 dr5 04/07 10:03 Order name: CMP; Complete Time: 11: dr5 04/07 10:03 Order name: Troponin High Sensitivity; Complete Time: : dr5 04/07 10:03 Order name: CT Head Brain wo Cont; Complete Time: 10:47 dr5 04/07 10:03 Order name: CT Facial Bones W/O Con; Complete Time: 10:59 dr5 04/07 10:03 Order name: Dressing - Wound; Complete Time: 10:31 dr5 04/07 10:03 Order name: Gloves, Sterile; Complete Time: 10:31 dr5 04/07 10:03 Order name: Prolene, Sutures; Complete Time: 13:05 dr5 04/07 10:03 Order name: Setup Suture Tray; Complete Time: 10: [facility] Administered Medications: 10:31 Drug: Boostrix Tdap IM 0.5 ml IM once; as a single dose Route: IM; Site: left deltoid; 7 11:37 Follow up: Response: No adverse reaction 1 10:31 Drug: NS 0.9% IV 2000 ml IV at 1000 ml once; to be given as a bolus over 60 minutes jl7 Route: IV; Rate: 1000 ml; Site: left antecubital; 11:37 Follow up: Response: No adverse reaction; IV Status: Completed infusion; IV Intake: ll1 2000ml 10:43 Drug: morphine IVP or IV 4 mg IVP once over 4 mins {Note: pain 8/10 RASS 0.} Route: ll1 IVP; Infused Over: 4 mins; Site: left antecubital; 11:38 Follow up: Response: No adverse reaction; Pain is decreased; RASS: Alert and Calm (0) ll1 13:05 Follow up: Response: No adverse reaction kj2 10:43 Drug: Ondansetron IVP 4 mg IVP once; over 2 minutes Route: IVP; Site: left antecubital; ll1 11:38 Follow up: Response: No adverse reaction ll1 13:05 Follow up: Response: No adverse reaction kj2 12:05 Drug: ceFAZolin IVPB 2 grams IVPB once over 30 mins; (mix in 100 mL NS) Route: IVPB; ll1 Infused Over: 30 mins; Site: left antecubital; 13:04 Follow up: IV Status: Completed infusion; IV Intake: 100ml kj2 12:14 Drug: Lidocaine-Epinephrine Infiltration -2 % (1:100,000) 10 ml Infiltration once; to ll1 bedside Route: Infiltration; 12:14 Follow up: Response: No adverse reaction ll1 Disposition: 17:04 Co-signature as Attending Physician, Monet Vázquez I agree with the assessment ci and plan of care. I reviewed the patient's care provided by the Advanced Practice Provider and agree with the diagnosis and treatment plan. Disposition Summary: 04/07/25 11:54 Transfer Ordered Notes: Transfer Location: [facility] dr5 Reason: Higher level of care dr5 Condition: Stable dr5 Problem: new dr5 Symptoms: are unchanged dr5 Accepting Physician: Tiana See(04/07/25 14:30) kj2 Diagnosis - Zygomatic fracture, right side, initial encounter for open fracture dr5 Forms: - Medication Reconciliation Form dr5 - SBAR form dr5 NIH Stroke Scale - NIH Stroke Score Date: 04/07/2025 Time: 11:38 Total Score = 0 10. Dysarthria (speech clarity - read or repeat words) - 0(Normal) 11. Extinction and Inattention (visual/tactile/auditory/spatial/personal) - 0(No abnormality) 1a. Level of Consciousness (LOC) - 0(Alert) 1b. Level of Consciousness (LOC) (Month \\T\\ Age) - 0(Both) 1c. LOC Commands (Open \\T\\ Closes Eyes/Manager Of Business Operations) - 0(Both) 2. Best Gaze (Lateral Gaze Paresis) - 0(Normal) 3. Visual Field Loss - 0(No visual loss) 4. Facial Palsy - 0(Normal) 5a. Left Arm: Motor (10-second hold) - 0(No drift) 5b. Right Arm: Motor (10-second hold) - 0(No drift) 6a. Left Leg: Motor (5-second hold - always test supine) - 0(No drift) 6b. Right Leg: Motor (5-second hold - always test supine) - 0(No drift) 7. Limb Ataxia (finger/nose \\T\\ heel/machado - test with eyes open) - 0(Absent) 8. Sensory Loss (pinprick arms/legs/face) - 0(Normal) 9. Best Language: Aphasia (description/naming/reading) - 0(No aphasia) Initials: ll1 Signatures: Dispatcher [employer] Sadie Burton RN RN jl7 Rene Rojas RN RN ll1 IheMonet luciano Krystal, RN RN kj2 Doug Johnston, METAL GRADER-C METAL GRADER-Cdr5 Corrections: (The following items were deleted from the chart) 10:03 10:03 CBC+H.LAB.BRZ ordered. EDMS EDMS 10:03 10:03 COMPREHENSIVE METABOLIC PANEL+C.LAB.BRZ ordered. EDMS EDMS 10:03 10:03 Troponin High Sensitivity+C.LAB.BRZ ordered. EDMS EDMS 14:30 11:54 [facility] dr5 kj2 17:19 13:52 ED course: Will transfer downtown for comminuted right zygomatic arch dr5 fracture. Laceration repaired completed in the ER. 2 g of Ancef given IV. Patient is feeling better after lack repair.. dr5
--- NOTE | 2025-04-07 11:55 | ER ---
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 Laceration R cheek area, bleeding ll1 controlled. Gait steady, feels better now. Coronavirus screen: Client denies travel out of the [place] in the last 14 days. At this time, the client does not indicate any symptoms associated with coronavirus-19. Ebola Screen: Patient denies travel to an Ebola-affected area in the 21 days before illness onset. No acute neurological deficit is noted. Initial Sepsis Screen: Does the patient meet any 2 criteria? No. Patient's initial sepsis screen is negative. Does the patient have a suspected source of infection? No. Patient's initial sepsis screen is negative. Risk Assessment: Do you want to hurt yourself or someone else? Patient reports no desire to harm self or others. Onset of symptoms was April 07, 2025. 09:58 Method Of Arrival: Ambulatory ll1 09:58 Acuity: ROBINA 3 ll1 Triage Assessment: 09:58 General: Appears distressed, uncomfortable, Behavior is calm, cooperative, appropriate ll1 for age. 10:46 The onset of the patients symptoms was less than three hours ago. Pain: Complains of ll1 pain in R cheek/jaw Quality of pain is described as aching. EENT: Reports laceration R cheek area. Neuro: Reports headache a syncopal episode weakness. Derm: Reports < 4 cm jagged laceration R cheek. 13:04 The onset of the patients symptoms was April 07, 2025 at 13:04. kj2 Stroke Activation: Symptom onset < 3 hours Physician: ED Attending; Name: ; Notified At: ; Arrived At: Physician: Mid-Level Provider; Name: ; Notified At: ; Arrived At: Physician: [not used]; Name: ; Notified At: ; Arrived At: Physician: [not used]; Name: ; Notified At: ; Arrived At: Physician: [not used]; Name: ; Notified At: ; Arrived At: Historical: - Allergies: 09:58 No Known Drug Allergies; ll1 - PMHx: :58 Seizures; Substance Abuse; ll1 - PSHx: :58 None; ll1 - Immunization history:: Adult Immunizations up to date, Last tetanus immunization: up to date. - Infectious Disease History:: Denies. - Social history:: Smoking status: Patient reports the use of cigarette tobacco products, smokes one-half pack cigarettes per day, Reported history of juuling and/or vaping. Screenin:05 [facility] ED Fall Risk Assessment (Adult) History of falling in the last 3 months, kj2 including since admission Yes- single mechanical fall (1 pt) Confusion or Disorientation No (0 pts) Intoxicated or Sedated No (0 pts) Impaired Gait No (0 pts) Mobility Assist Device Used No (0 pt) Altered Elimination No (0 pt) Score/Fall Risk Level 0 - 2 = Low Risk Maintained a safe environment, Hourly rounding (assess needs \T\ fall precautionary measures) done. Abuse screen: Denies threats or abuse. Denies injuries from another. Nutritional screening: No deficits noted. Tuberculosis screening: No symptoms or risk factors identified. Assessment: 10:47 Reassessment: No changes from previously documented assessment. Patient and/or family ll1 updated on plan of care and expected duration. Pain level reassessed. 11:38 Reassessment: No changes from previously documented assessment. Patient and/or family ll1 updated on plan of care and expected duration. Pain level reassessed. Patient is alert, oriented x 3, equal unlabored respirations, skin warm/dry/pink. Patient states feeling better. 11:38 [place] Swallow Protocol 3 oz Water Swallow Challenge:. ll1 12:05 Reassessment: Patient appears in no apparent distress at this time. Patient and/or kj2 family updated on plan of care and expected duration. Pain level reassessed. Patient is alert, oriented x 3, equal unlabored respirations, skin warm/dry/pink. 13:00 VAN Scoring: Arm Drift: Patients demonstrates NO arm weakness. Patient is VAN Negative. kj2 Visual Disturbance: No visual disturbance noted. [place] Swallow Protocol Brief Cognitive Screen What is your name? Normal, Where are you right now? Normal, What year is it? Normal. Oral Mechanism Examination Facial Symmetry: Normal, Motion: Normal, Lip Closure: Normal. [place] Swallow Protocol Exclusion Criteria:. 14:00 Reassessment: Patient appears in no apparent distress at this time. No changes from kj2 previously documented assessment. Patient and/or family updated on plan of care and expected duration. Pain level reassessed. Patient is alert, oriented x 3, equal unlabored respirations, skin warm/dry/pink. 14:25 [place] Swallow Protocol Result: PASS. TNKase (Tenecteplase) Screening: Not Applicable. kj2 Vital Signs: 09:58 BP 109 / 74; Pulse 81; Resp 16; Temp 98; Pulse Ox 100% on R/A; Weight 70.31 kg; Height ll1 5 ft. 7 in. ; Pain 7/10; 13:05 BP 116 / 75; Pulse 78; Resp 18; Pulse Ox 100% on R/A; kj2 14:05 BP 115 / 72; Pulse 80; Resp 18; Pulse Ox 100% on R/A; kj2 09:58 Body Mass Index 24.28 (70.31 kg, 170.18 cm) ll1 09:58 Pain Scale: Adult ll1 NIH Stroke Scale Scores: 11:38 NIHSS Score: 0 ll1 ED Course: 09:47 Patient arrived in ED. cj3 09:47 [facility] 09:47 Monet Vázquez is Attending Physician. dr5 09:57 Rene Rojas, OPAL is Primary Nurse. ll1 09:57 Arm band placed on Patient placed in an exam room, on a stretcher. ll1 10:00 Triage completed. ll1 10:21 CT Head Brain wo Cont In Process Unspecified. EDMS 10:21 CT Facial Bones W/O Con In Process Unspecified. EDMS 10:27 Initial lab(s) drawn, by co, sent to lab. Inserted saline lock: 20 gauge in left ll1 antecubital area, using aseptic technique. Blood collected. Flushed with 10 mL NS. 12:05 Patient has correct armband on for positive identification. Provided Education on: call [facility] light. 12:05 No provider procedures requiring assistance completed. kj2 13:09 [id number] called [facility] for transfer talked to [facility]. 1334 Dr. Austen Bal accepted sp pt to [facility] 1335 Admin approval by Alize Flores TC to [facility] [phone] called [facility] for Transfer talked to [place]. 14:26 Patient transferred, IV remains in place. kj2 Administered Medications: 10:31 Drug: Boostrix Tdap IM 0.5 ml IM once; as a single dose Route: IM; Site: left deltoid; jl7 11:37 Follow up: Response: No adverse reaction ll1 10:31 Drug: NS 0.9% IV 2000 ml IV at 1000 ml once; to be given as a bolus over 60 minutes jl7 Route: IV; Rate: 1000 ml; Site: left antecubital; 11:37 Follow up: Response: No adverse reaction; IV Status: Completed infusion; IV Intake: ll1 2000ml 10:43 Drug: morphine IVP or IV 4 mg IVP once over 4 mins {Note: pain 8/10 RASS 0.} Route: ll1 IVP; Infused Over: 4 mins; Site: left antecubital; 11:38 Follow up: Response: No adverse reaction; Pain is decreased; RASS: Alert and Calm (0) ll1 13:05 Follow up: Response: No adverse reaction kj2 10:43 Drug: Ondansetron IVP 4 mg IVP once; over 2 minutes Route: IVP; Site: left antecubital; ll1 11:38 Follow up: Response: No adverse reaction ll1 13:05 Follow up: Response: No adverse reaction kj2 12:05 Drug: ceFAZolin IVPB 2 grams IVPB once over 30 mins; (mix in 100 mL NS) Route: IVPB; ll1 Infused Over: 30 mins; Site: left antecubital; 13:04 Follow up: IV Status: Completed infusion; IV Intake: 100ml kj2 12:14 Drug: Lidocaine-Epinephrine Infiltration -2 % (1:100,000) 10 ml Infiltration once; to ll1 bedside Route: Infiltration; 12:14 Follow up: Response: No adverse reaction ll1 Medication: 13:04 VIS not applicable for this client. kj2 Intake: 11:37 IV: 2000ml; Total: 2000ml. ll1 13:04 IV: 100ml; Total: 2100ml. kj2 Outcome: 11:54 ER care complete, transfer ordered by MD. head 14:25 Discharged to home ambulatory, kj2 14:25 Condition: stable 14:25 Discharge instructions given to patient, Instructed on discharge instructions, follow up and referral plans. Demonstrated understanding of instructions, follow-up care, 14:30 Patient left the ED. kj2 NIH Stroke Scale - NIH Stroke Score Date: 04/07/2025 Time: 11:38 Total Score = 0 10. Dysarthria (speech clarity - read or repeat words) - 0(Normal) 11. Extinction and Inattention (visual/tactile/auditory/spatial/personal) - 0(No abnormality) 1a. Level of Consciousness (LOC) - 0(Alert) 1b. Level of Consciousness (LOC) (Month \T\ Age) - 0(Both) 1c. LOC Commands (Open \T\ Closes Eyes/Steelworker) - 0(Both) 2. Best Gaze (Lateral Gaze Paresis) - 0(Normal) 3. Visual Field Loss - 0(No visual loss) 4. Facial Palsy - 0(Normal) 5a. Left Arm: Motor (10-second hold) - 0(No drift) 5b. Right Arm: Motor (10-second hold) - 0(No drift) 6a. Left Leg: Motor (5-second hold - always test supine) - 0(No drift) 6b. Right Leg: Motor (5-second hold - always test supine) - 0(No drift) 7. Limb Ataxia (finger/nose \T\ heel/machado - test with eyes open) - 0(Absent) 8. Sensory Loss (pinprick arms/legs/face) - 0(Normal) 9. Best Language: Aphasia (description/naming/reading) - 0(No aphasia) Initials: ll1 Signatures: Dispatcher [employer] EDRI Yennifer Holt Jahala RN RN jl7 Rene Rojas RN RN ll1 Kait Mosquera RN RN kj2 Doug Johnston, BINDERY MACHINE FEEDER OFFBEARER-C BINDERY MACHINE FEEDER OFFBEARER-5 Rosi Flores3 Corrections: (The following items were deleted from the chart) 10:47 09:58 General: Appears ll1 ll1
[2025-04-07] MEDS ORDERED: NA CHLORIDE 0.9% 100 ML ONE (11:57)
[2025-04-07] MEDS ORDERED: CEFAZOLIN SODIUM 2 GM/VIAL ONE (11:58)
[2025-04-07 14:52] VITALS: TEMP 98; O2SAT 100
[2025-04-07 14:55] VITALS: BP 115/72
== END 2025-04-07 14:30 | disposition short-term general hospital (02) ==
LOC: ER 09:44
DX: S02.40EB Zygomatic fracture, right side, initial encounter for open fracture (principal); W18.30XA Fall on same level, unspecified, initial encounter
CPT/HCPCS: 12013; 36415; 70450; 70486; 76377; 80053; 84484; 85025; 90715; 96361; 96365; 96372; 96375; 99285; J2405; J7030